=== PATIENT | male | born 1950 | race Caucasian/White ===

== ENCOUNTER 2024-08-28 06:25 | Day surgery (SDC) | payer MEDICARE, SELFPAY ==
[2024-08-15 10:12] VITALS: BMI 22.7
[2024-08-15 10:47] LABS: Hematocrit 41.6 % (39.0-52.0); Hemoglobin 13.6 g/dL (13.0-18.0); Mean Corp Hgb Conc. 32.7 g/dL (33.0-37.0); Mean Corpuscular Hgb 30.1 pg (27.0-31.0); Mean Platelet Volume 9.5 fL (7.4-10.4); Platelet Count 242 10^3/uL (130-400); Red Blood Cell Count 4.52 10^6/uL (4.70-6.10); Red Cell Dist. Width 14.1 % (11.5-14.5); White Blood Cell Count 7.6 10^3/uL (4.8-10.8)
[2024-08-15 12:01] LABS: Blood Urea Nitrogen 20 mg/dl (9-20); Calcium 9.3 mg/dl (8.4-10.2); Carbon Dioxide 28 mmol/L (22-30); Chloride 100 mmol/L (98-107); Estimated Creatinine Clearance 101 ml/min; Glucose 98 mg/dl (70-99); Potassium 4.7 mmol/L (3.5-5.1); Sodium 140 mmol/L (135-145); eGFR > 60.00
[2024-08-28] VITALS (10 sets, daily range): BP systolic 112–177; BP diastolic 67–90; BMI 22.7
[2024-08-28] MEDS: TYLENOL 1000 MG PO (11:44)
--- NOTE | 2024-08-28 14:47 | SUR.PHASEI ---
REc'd sleepy on stretcher, oriented x 3 by RN positioned for comfort, denies c/o at present
--- NOTE | 2024-08-28 15:01 | SUR.PHASEI ---
Very sleepy HOB elevated low fowlers jacky well, ice to groin jacky well
--- NOTE | 2024-08-28 15:17 | SUR.PHASEI ---
Stable Report to Yen
== END 2024-08-28 16:37 | disposition home or self-care (01) ==
LOC: SDS 06:25
PROVIDERS: ATTENDING PHYSICIAN Surgery; FAMILY PHYSICIAN Family Medicine
DX: K40.90 Unilateral inguinal hernia, without obstruction or gangrene, not specified as recurrent (principal)
CPT/HCPCS: 49650; 36415; 80048; 85027; 93005; C1781